=== PATIENT | male | born 1985 | race African-American/Black ===

== ENCOUNTER 2024-09-04 13:45 | Emergency (ER) | payer MEDICAID ==
[~2024-09-04] VITALS: Ht 172.7 cm; Wt 82.0 kg
[2024-09-04 13:47] VITALS: BP 115/76; TEMP 36.6; O2SAT 99
[2024-09-04 13:52] VITALS: PULSE 81; RESP 18; O2SAT 99
[2024-09-04] MEDS ORDERED: LIDO-53 TP (14:31)
[2024-09-04] MEDS ORDERED: KETOROLAC 30MG/ML VIAL IM ONE (15:15)
[2024-09-04] MEDS ORDERED: ACET-2708 MT (15:24)
== END 2024-09-04 15:30 | disposition home or self-care (01) ==
LOC: ER 13:45
DX: R07.81 Pleurodynia (principal); Z98.890 Other specified postprocedural states
CPT/HCPCS: 71046; 99283

== ENCOUNTER 2024-09-29 02:51 | Emergency (ER) | payer MEDICAID ==
[~2024-09-29] VITALS: Ht 165.1 cm; Wt 87.0 kg
[~2024-09-29 02:51] MED LIST: ACET-2708 MT; LIDO-53 TP
[2024-09-29 03:07] VITALS: TEMP 36.9; O2SAT 98
[2024-09-29] MEDS: KETOROLAC 15MG/ML VIAL IM ONE (03:50)
[2024-09-29] MEDS ORDERED: NAPR-1176 MT (05:06)
[2024-09-29 05:23] VITALS: BP 139/79; PULSE 74; RESP 20; O2SAT 100
== END 2024-09-29 05:26 | disposition home or self-care (01) ==
LOC: ER 03:13
DX: S52.501D Unspecified fracture of the lower end of right radius, subsequent encounter for closed fracture with routine healing (principal); W22.8XXA Striking against or struck by other objects, initial encounter; Y93.89 Activity, other specified; Y92.89 Other specified places as the place of occurrence of the external cause; Y99.8 Other external cause status
CPT/HCPCS: 99284; 73110; 73120; 29125; 96372; J1885; A6449